=== PATIENT | male | born 1970 | race Caucasian/White ===

== ENCOUNTER 2017-07-19 06:11 | Emergency (ER) | payer BC ==
[~2017-07-19] VITALS: Ht 185.4 cm; Wt 97.3 kg
[2017-07-19] MEDS ORDERED: DICLOFENAC SODI75 MG PO (06:33)
[2017-07-19] MEDS ORDERED: LIDODERM 5% P1 PATCH TD (07:38)
[2017-07-19] MEDS ORDERED: PERCOCET 5/31 TABLET PO (07:38)
[2017-07-19 07:45] VITALS: BP 117/75
== END 2017-07-19 07:45 | disposition home or self-care (01) ==
LOC: EME 06:11
DX: S29.011A Strain of muscle and tendon of front wall of thorax, initial encounter (principal); Y93.72 Activity, wrestling; K21.9 Gastro-esophageal reflux disease without esophagitis; F17.200 Nicotine dependence, unspecified, uncomplicated
CPT/HCPCS: 71020; 93005; 99281; 99284

== ENCOUNTER 2018-03-17 18:23 | Emergency (ER) | payer BC ==
[~2018-03-17] VITALS: Ht 185.4 cm; Wt 98.7 kg
[~2018-03-17 18:23] MED LIST: DICLOFENAC SODI75 MG PO; LIDODERM 5% P1 PATCH TD; PERCOCET 5/31 TABLET PO
[2018-03-17 19:27] LABS: HEMATOCRIT 43.4 % (38.0-50.0); HEMOGLOBIN 14.9 G/DL (12.5-16.6); MCHC 34.3 G/DL (30.0-36.0); PLATELET COUNT 243 K/uL (156-360); RBC DIS.WIDTH-CV 13.2 % (11.8-14.6); RBC DIS.WIDTH-SD 46.6 % (39-53); RED BLOOD COUNT 4.52 M/uL (4.00-5.50); WHITE BLOOD COUNT 13.2 K/uL (4.1-10.2)
[2018-03-17 19:36] LABS: ALBUMIN 4.2 g/dL (3.2-4.8)
[2018-03-17 19:37] LABS: CHLORIDE 106 mEq/L (99-109); POTASSIUM 3.9 mEq/L (3.7-5.4); SODIUM 142 mEq/L (136-147)
[2018-03-17 19:39] LABS: GLUCOSE 114 mg/dL (70-99); TOTAL PROTEIN 7.5 g/dL (6.4-8.3)
[2018-03-17 19:41] LABS: TOTAL BILIRUBIN 0.4 mg/dL (0.0-1.0)
[2018-03-17 19:42] LABS: ALKALINE PHOSPHATASE 87 IU/L (3-129)
[2018-03-17 19:43] LABS: CREATININE 0.8 mg/dL (0.6-1.3); GFR ESTIMATE (CALCULATED) > 59 mL/min/ (58.99-99999)
[2018-03-17 19:44] LABS: AST (GOT) 19 IU/L (2-34); UREA NITROGEN (BUN) 8 mg/dL (9-23)
[2018-03-17 19:46] LABS: ALT (GPT) 26 IU/L (3-49); LIPASE 15 U/L (1.0-51.0)
[2018-03-17 21:15] LABS: APPEARANCE CLEAR ((CLEAR)); BILIRUBIN NEGATIVE; BLOOD SMALL; COLOR STRAW ((YELLOW)); GLUCOSE (STRIP) NEGATIVE; KETONES NEGATIVE; LEUKOCYTES NEGATIVE; NITRITE NEGATIVE; PROTEIN (STRIP) NEGATIVE; SPECIFIC GRAVITY 1.004 (1.000-1.030); UROBILINOGEN 0.2 MG/DL (0.2-1.0)
[2018-03-17 21:24] LABS: BACTERIA RARE /HPF; EPITHELIAL CELLS RARE /HPF; MUCUS NONE SEEN /LPF; RED BLOOD CELLS 0-5 /HPF (0-5); UCUL ADDED? NO; WHITE BLOOD CELLS 0-5 /HPF (0-5)
[2018-03-17] MEDS ORDERED: CIPRO500 MG PO (22:41)
[2018-03-17] MEDS ORDERED: FLAGYL500 MG PO (22:41)
[2018-03-17 22:57] VITALS: BP 104/69
== END 2018-03-17 22:59 | disposition home or self-care (01) ==
LOC: EME 18:23
DX: K52.9 Noninfective gastroenteritis and colitis, unspecified (principal); K21.9 Gastro-esophageal reflux disease without esophagitis; A69.20 Lyme disease, unspecified; F17.200 Nicotine dependence, unspecified, uncomplicated
CPT/HCPCS: 74177; 80053; 81003; 83690; 85027; 93005; 99281; 99284; J7030